=== PATIENT | male | born 1955 | race Caucasian/White ===

== ENCOUNTER 2017-12-13 23:23 | Inpatient (IN) | payer BC, OTHER ==
[~2017-12-13] VITALS: Ht 175.3 cm; Wt 88.0 kg
[2017-12-13 23:59] LABS: BASO % 0.3 %; BASO ABS # 0.03 K/uL (0-0.2); EOS % 2.8 %; EOS ABS # 0.26 K/uL (0-0.5); HEMATOCRIT 43.1 % (42-52); HEMOGLOBIN 15.8 g/dL (14.0-18.0); IG# 0.03 K/uL (0.00-0.02); LYMPH % 19.2 %; LYMPH ABS # 1.76 K/uL (1.2-3.4); MEAN CELL VOLUME 88.7 fL (80-100); MEAN CORPUSCULAR HEMOGLOBIN 32.5 pg (25-34); MEAN CORPUSCULAR HGB CONC 36.7 g/dl (32-36); MEAN PLATELET VOLUME 9.6 fL (7.4-10.4); MONO ABS # 0.73 K/uL (0.11-0.59); NEUT % 69.4 %; NEUT ABS # 6.35 K/uL (1.4-6.5); PLATELET COUNT 217 K/uL (130-400); RED CELL DISTRIBUTION WIDTH CV 12.4 % (11.5-14.5); RED CELL DISTRIBUTION WIDTH SD 39.3 fL (36.4-46.3); WHITE BLOOD COUNT 9.16 K/uL (4.8-10.8)
[2017-12-14] VITALS (15 sets, daily range): BP systolic 97–115; BP diastolic 55–71; PULSE 57–76; TEMP 36.6–36.8; O2SAT 93–97; Ht 175.3 cm; Wt 88.0 kg
[2017-12-14] MEDS ORDERED: NITROGLYCERIN 2% OINTMENT 30GM TUBE EXT ONE
[2017-12-14 00:15] LABS: INR 1.1 (0.9-1.1); PTT PATIENT 26.7 SECONDS (21.0-31.0)
[2017-12-14 00:18] LABS: ALBUMIN 3.6 gm/dl (3.4-5.0); ALT/SGPT 60 U/L (12-78); AST/SGOT 18 U/L (15-37); BLOOD UREA NITROGEN 19 mg/dl (7-18); CALCIUM 8.4 mg/dl (8.5-10.1); CARBON DIOXIDE 27 mmol/L (21-32); CREATININE 0.97 mg/dl (0.60-1.40); GLUCOSE 101 mg/dl (70-99); POTASSIUM 3.7 mmol/L (3.5-5.1); SODIUM 137 mmol/L (136-145)
[2017-12-14 00:23] LABS: ALKALINE PHOSPHATASE 75 U/L (45-117); TOTAL PROTEIN 7.4 gm/dl (6.4-8.2)
--- NOTE | 2017-12-14 00:32 | EMERGENCY ROOM VISIT NOTE ---
History Report prepared by Kasey: Jo Meraz Under the Supervision of: Dr. Idalia Leung D.O. First contact with patient: 23:23 Chief Complaint: CARDIAC ASSESSMENT Stated Complaint: CARDIAC ASSESSMENT History of Present Illness The patient is a 62 year old male who presents to the Emergency Room for a cardiac assessment. The patient states that he has a history of GERD and takes Prilosec. He reports that he has been having increased burning in his chest so he upped his dosage, but it did not help. He states that he started walking daily and noticed it was worse going up a small incline. He states that after 2 nights of this he called for a cardiology appointment. The patient reports that they got him in today for a stress test. He reports that he only made to the second phase when they saw large changes and stopped the test. The reports that the nurse told her it may be an LAD occlusion. She reports that they got back tomorrow to determine if he just needs a cardiac catheterization or a CABG. The patient states that tonight he was having intermittent burning in his chest. He reports that when he lied down for bed he had an increase in burning that radiated into his back. He states that he decided to take a Nitroglycerin pill to help. He reports that right after taking it, the pain radiated into his shoulders, became more intense, and he became diaphoretic. His notes that he also became very pale. The patient states that at this time they called 911. He reports that by the time EMS arrived the pain had subsided. He states that EMS gave him an Aspirin. The patient complains of a headache tonight. The patient notes that he had tingling in his feet in the past month and has been having more gas than normal. The patient denies shortness of breath, nausea, dizziness, lightheadedness, leg swelling, change in bowel movements, and urinary symptoms. The patient denies ever having a cardiac history, GI history, and a history of strokes. The patient notes that his father had a heart attack at age 60. Source of History: patient Onset: this evening Position: other (global) Quality: burning, other (cardiac assessment ) Timing: other (episode) Modifying Factors (Relieving): other (Nitroglycerin) Associated Symptoms: + headache, + diaphoresis, No SOB, No nausea, No urinary symptoms Note: The patient complains of being pale. The patient denies dizziness, lightheadedness, leg swelling, and change in bowel movements. Review of Systems See HPI for pertinent positives & negatives. A total of 10 systems reviewed and were otherwise negative. Past Medical & Surgical Medical Problems: (1) Chest pain (2) GERD (gastroesophageal reflux disease) Family History FH: heart attack Social History Marital Status: Housing Status: lives with family Current/Historical Medications Scheduled Aspirin (Aspirin Ec), 81 MG PO DAILY Fish Oil ([place]-3), 1 CAP PO DAILY Multiple Vitamin (Multivitamin), 1 TAB PO DAILY Omeprazole Magnesium (Prilosec Otc), 20 MG PO DAILY Allergies Coded Allergies: No Known Allergies (Unverified , 12/14/17) Physical Exam Vital Signs Date Time Temp Pulse Resp B/P (MAP) Pulse Ox O2 Delivery O2 Flow Rate FiO2 12/14/17 01:42 71 18 133/76 98 Room Air 12/13/17 23:30 68 12/13/17 23:28 96 Room Air 12/13/17 23:28 37.0 66 16 132/84 96 Room Air Physical Exam GENERAL: alert, well appearing, well nourished, no distress, non-toxic EYE EXAM: normal conjunctiva, PERRL and EOM's grossly intact OROPHARYNX: no exudate, no erythema, lips, buccal mucosa, and tongue normal and mucous membranes are moist NECK: supple, no nuchal rigidity, no adenopathy, non-tender LUNGS: Clear to auscultation. Normal chest wall mechanics HEART: no murmurs, S1 normal and S2 normal, no reproducible chest wall tenderness. ABDOMEN: abdomen soft, non-tender, normo-active bowel sounds, no masses, no rebound or guarding. BACK: Back is symmetrical on inspection and there is no deformity, no midline tenderness, no CVA tenderness. SKIN: no rashes and no bruising UPPER EXTREMITIES: upper extremities are grossly normal. Pulses equal bilaterally. LOWER EXTREMITIES: No pitting edema. Pulses equal bilaterally. NEURO EXAM: Normal sensorium, cranial nerves II-XII grossly intact, normal speech, no gross weakness of arms, no gross weakness of legs. Medical Decision & Procedures ER Provider Diagnostic Interpretation: CHEST X-RAY: The results were interpreted by me. No cardiomegaly. No effusion. Mildly rotated. No focal infiltrate. No wide mediastinum. No overt pulmonary edema. Laboratory Results 12/13/17 23:43 Red Blood Count 4.86, Mean Corpuscular Volume 88.7, Mean Corpuscular Hemoglobin 32.5, Mean Corpuscular Hemoglobin Concent 36.7, Mean Platelet Volume 9.6, Neutrophils (%) (Auto) 69.4, Lymphocytes (%) (Auto) 19.2, Monocytes (%) (Auto) 8.0, Eosinophils (%) (Auto) 2.8, Basophils (%) (Auto) 0.3, Neutrophils # (Auto) 6.35, Lymphocytes # (Auto) 1.76, Monocytes # (Auto) 0.73, Eosinophils # (Auto) 0.26, Basophils # (Auto) 0.03 12/13/17 23:43 Test 12/13/17 23:43 White Blood Count 9.16 K/uL (4.8-10.8) Red Blood Count 4.86 M/uL (4.7-6.1) Hemoglobin 15.8 g/dL (14.0-18.0) Hematocrit 43.1 % (42-52) Mean Corpuscular Volume 88.7 fL (80-100) Mean Corpuscular Hemoglobin 32.5 pg (25-34) Mean Corpuscular Hemoglobin Concent 36.7 g/dl (32-36) Platelet Count 217 K/uL (130-400) Mean Platelet Volume 9.6 fL (7.4-10.4) Neutrophils (%) (Auto) 69.4 % Lymphocytes (%) (Auto) 19.2 % Monocytes (%) (Auto) 8.0 % Eosinophils (%) (Auto) 2.8 % Basophils (%) (Auto) 0.3 % Neutrophils # (Auto) 6.35 K/uL (1.4-6.5) Lymphocytes # (Auto) 1.76 K/uL (1.2-3.4) Monocytes # (Auto) 0.73 K/uL (0.11-0.59) Eosinophils # (Auto) 0.26 K/uL (0-0.5) Basophils # (Auto) 0.03 K/uL (0-0.2) RDW Standard Deviation 39.3 fL (36.4-46.3) RDW Coefficient of Variation 12.4 % (11.5-14.5) Immature Granulocyte % (Auto) 0.3 % Immature Granulocyte # (Auto) 0.03 K/uL (0.00-0.02) Prothrombin Time 12.0 SECONDS (9.0-12.0) Prothromb Time International Ratio 1.1 (0.9-1.1) Activated Partial Thromboplast Time 26.7 SECONDS (21.0-31.0) Partial Thromboplastin Ratio 1.0 Anion Gap 8.0 mmol/L (3-11) Est Creatinine Clear Calc Drug Dose 85.6 ml/min Estimated GFR () 95.9 Estimated GFR (Non- 82.7 BUN/Creatinine Ratio 19.3 (10-20) Calcium Level 8.4 mg/dl (8.5-10.1) Magnesium Level 1.9 mg/dl (1.8-2.4) Total Bilirubin 0.4 mg/dl (0.2-1) Aspartate Amino Transf (AST/SGOT) 18 U/L (15-37) Alanine Aminotransferase (ALT/SGPT) 60 U/L (12-78) Alkaline Phosphatase 75 U/L (45-117) Total Protein 7.4 gm/dl (6.4-8.2) Albumin 3.6 gm/dl (3.4-5.0) Globulin 3.8 gm/dl (2.5-4.0) Albumin/Globulin Ratio 0.9 (0.9-2) Laboratory results per my review. Medications Administered Medications (Trade) Dose Ordered Sig/Abdullahi Route Start Time Stop Time Status Last Admin Dose Admin Nitroglycerin (Nitroglycerin 2% Oint) 1 inch NOW ONCE EXT 12/14/17 00:00 12/14/17 00:01 DC 12/14/17 00:03 1 INCH Heparin Sodium/ Dextrose 500 ml @ 19 mls/hr Q24H PRN IV 12/14/17 00:45 01/13/18 00:44 12/14/17 01:23 19 MLS/HR Heparin Sodium (Porcine) (Heparin Sq 5000 Unit/0.5ml) 4,000 unit NOW STAT IV 12/14/17 00:42 12/14/17 00:43 DC 12/14/17 01:22 4,000 UNIT Miscellaneous Medication (Gi Cocktail) 24 ml NOW STAT PO 3/6/18 02:39 12/14/17 02:40 DC 12/14/17 02:39 24 ML Acetaminophen (Tylenol Tab) 650 mg Q4H PRN PO 12/14/17 02:45 01/13/18 02:44 12/14/17 04:05 650 MG ECG Per My Interpretation Indication: chest pain Rate (beats per minute): 64 Rhythm: sinus rhythm Findings: 1st degree AV block, no acute ischemic change, no ectopy, other ( normal axis, normal intervals) Comparison ECG Date: REPEAT Change: REPEAT EKG: Sinus rhythm at a rate of 64. 1st degree AV block. Normal axis. Normal intervals. No ectopy. No acute ischemic change. ED Course 2323: The patient was evaluated in room B2. A complete history and physical exam was performed. 2356: I reevaluated the patient and he is starting to have chest pain again so we are going to do a repeat EKG. 0000: Ordered Nitroglycerin 1 inch EXT. 0027: I reviewed the patient's case with Dr. Ham -[facility] Hospital[facility]. He will evaluate the patient for further management. 0034: I reevaluated the patient and updated him on his test results. 0037: Ordered Heparin Sodium/ Dextrose 1 ea N/A. 0042: Ordered Heparin Sodium (Porcine) 4000 unit IV. 0045: Ordered Heparin Sodium/ Dextrose 500 ml @ 19 mls/hr PRN IV IV Anticoagulation titration. Medical Decision Differential diagnosis: Etiologies such as cardiac ischemia, aortic dissection, pulmonary embolism, pneumonia, pneumothorax, musculoskeletal, infections, pericarditis, myocarditis , esophageal rupture, gastrointestinal, as well as others were entertained. Patient with concerning story and recent failed outpatient stress test with cardiology. Per family tentative plans have been made to discuss cardiac catheterization for additional diagnosis and treatment. Given patient's recurrent and concerning symptoms tonight, discussed with him admission for likely additional testing and treatment. Patient pain-free on arrival here after having taken 1 nitro at home and been given aspirin by EMS. Patient had one recurrence here, repeat EKG was done which showed no changes. Patient's first troponin here was negative. Given high level of concern for patient given family history, abnormal stress test, and risk factors, discussed with hospitalist for additional evaluation and treatment. Patient started on heparin. I do not suspect dissection, PE, tamponade, perf, gi bleed, or occult infectious etiology. Patient with no history of prior GI bleed or intracranial hemorrhage. Dr. Miller was not on for cardiology this evening as that is who the patient was seen by in the office, and hospitalist stated they will consult cardiology in the morning given that he has been hemodynamically stable, had no EKG changes and his first troponin was negative. Medication Reconcilliation Current Medication List: was personally reviewed by me Blood Pressure Screening Patient's blood pressure: Normal blood pressure Will be further monitored by the hospitalist. Consults Time Called: 24 Consulting Physician: Dr. Jitendra SMILEY Hospitalist Returned Call: [phone] I reviewed the patient's case with Dr. Jitendra SMILEY Hospitalist. He will evaluate the patient for further management. Impression Primary Impression: Chest pain Additional Impression: Abnormal stress test Scribe Attestation The scribe's documentation has been prepared under my direction and personally reviewed by me in its entirety. I confirm that the note above accurately reflects all work, treatment, procedures, and medical decision making performed by me. Departure Information Dispostion Being Evaluated By Hospitalist Referrals No Doctor, Assigned (PCP) Patient Instructions My [facility] Problem Qualifiers Primary Impression: Chest pain Chest pain type: unspecified Qualified Codes: R07.9 - Chest pain, unspecified
[2017-12-14] MEDS ORDERED: HEPARIN SOD 5000 UNIT/0.5 ML CARP IV STA (00:42)
[2017-12-14] MEDS ORDERED: ASPI81TA28 PO (00:49)
[2017-12-14] MEDS ORDERED: MULTTAB58 PO (00:49)
[2017-12-14] MEDS ORDERED: OMEG10007 PO (00:49)
[2017-12-14] MEDS ORDERED: OMEP20TA14 PO (00:49)
[2017-12-14] MEDS: HEPARIN 25,000 UNIT/500ML D5W 500 ML IV PRN ×2 (01:23→09:22)
[2017-12-14] MEDS ORDERED: GI COCKTAIL PO STA (02:39)
[2017-12-14] MEDS ORDERED: ONDANSETRON INJ 2 MG/ML 2 ML VIAL IV PRN ×2 (02:45→10:15)
[2017-12-14] MEDS ORDERED: ACETAMINOPHEN 325 MG TAB PO PRN ×2 (02:45→10:15)
[2017-12-14] MEDS ORDERED: POLYETHYLENE (MIRALAX) 17 GM PACK PO PRN (02:45)
[2017-12-14] MEDS ORDERED: ALUMINUM/MAGNESIUM SUSP 30 ML UDC ONE (02:55)
[2017-12-14] MEDS ORDERED: LIDOCAINE HCL 2% VISC SOLN 20 ML UDC ONE (02:55)
--- NOTE | 2017-12-14 04:26 | History and Physical ---
History & Physical Date & Time of Service: Dec 14, 2017 at 04:17 Chief Complaint: Chest Pain Primary Care Physician: Mercy Patel M.D. History of Present Illness Source: patient Patient is a 62 year old male with a past medical history of GERD that presents with a 1 month history of progressive chest discomfort. The patient was seen by Dr. Miller this afternoon for a stress test, and during the second stage of the exam Dr. Miller told the patient his EKG was showing signs of LAD pathology and was sent over to the hospital. The patient was referred there by his PCP Dr. Patel after having a month history of burning chest discomfort across his chest that had been progressing with strenuous activity. The patient was able to walk fine on flat planes, but any incline would cause the patient to experience the discomfort. It was not reproducible with palpation, did not radiate, was relieved with rest, did not have palpitations, and denies any other associated symptoms. The patient was given Nitro paste in the ED and this relieved his pain. He denies any other acute symptoms at this time. Family History FH: heart attack Social History Smoking Status: Unknown if Ever Smoked Alcohol Use: none Drug Use: none Marital Status: Housing status: lives with family Immunizations History of Influenza Vaccine: Unknown History of Tetanus Vaccine?: Unknown History of Pneumococcal: Unknown History of Hepatitis B Vaccine: Unknown Allergies Coded Allergies: No Known Allergies (Unverified , 12/14/17) Home Medications Scheduled Aspirin (Aspirin Ec), 81 MG PO DAILY Fish Oil ([place]-3), 1 CAP PO DAILY Multiple Vitamin (Multivitamin), 1 TAB PO DAILY Omeprazole Magnesium (Prilosec Otc), 20 MG PO DAILY Review of Systems Constitutional: No fever, No chills, No sweats, No weight loss, No fatigue Respiratory: No cough, No shortness of breath Cardiovascular: + chest pain, No orthopnea, No palpitations Abdomen: No pain, No nausea, No vomiting, No diarrhea, No constipation Musculoskeletal: No swelling Physical Exam Vital Signs Date Time Temp Pulse Resp B/P (MAP) Pulse Ox O2 Delivery O2 Flow Rate FiO2 12/14/17 03:21 58 18 116/74 93 12/14/17 02:57 61 12/14/17 01:42 71 18 133/76 98 Room Air 12/13/17 23:30 68 12/13/17 23:28 96 Room Air 12/13/17 23:28 37.0 66 16 132/84 96 Room Air General Appearance: WD/WN, no apparent distress Head: normocephalic, atraumatic Eyes: normal inspection, sclerae normal Neck: supple, no carotid bruits, trachea midline Respiratory/Chest: chest non-tender, lungs clear, normal breath sounds Cardiovascular: regular rate, rhythm, no edema, no gallop Abdomen/GI: normal bowel sounds, non tender, soft Extremities/Musculoskelatal: normal inspection, no calf tenderness, no pedal edema Neurologic/Psych: alert, oriented x 3 Diagnostics Laboratory Results Results Past 24 Hours Test 12/13/17 23:43 Range/Units White Blood Count 9.16 4.8-10.8 K/uL Red Blood Count 4.86 4.7-6.1 M/uL Hemoglobin 15.8 14.0-18.0 g/dL Hematocrit 43.1 42-52 % Mean Corpuscular Volume 88.7 80-100 fL Mean Corpuscular Hemoglobin 32.5 25-34 pg Mean Corpuscular Hemoglobin Concent 36.7 32-36 g/dl Platelet Count 217 130-400 K/uL Mean Platelet Volume 9.6 7.4-10.4 fL Neutrophils (%) (Auto) 69.4 % Lymphocytes (%) (Auto) 19.2 % Monocytes (%) (Auto) 8.0 % Eosinophils (%) (Auto) 2.8 % Basophils (%) (Auto) 0.3 % Neutrophils # (Auto) 6.35 1.4-6.5 K/uL Lymphocytes # (Auto) 1.76 1.2-3.4 K/uL Monocytes # (Auto) 0.73 0.11-0.59 K/uL Eosinophils # (Auto) 0.26 0-0.5 K/uL Basophils # (Auto) 0.03 0-0.2 K/uL RDW Standard Deviation 39.3 36.4-46.3 fL RDW Coefficient of Variation 12.4 11.5-14.5 % Immature Granulocyte % (Auto) 0.3 % Immature Granulocyte # (Auto) 0.03 0.00-0.02 K/uL Prothrombin Time 12.0 9.0-12.0 SECONDS Prothromb Time International Ratio 1.1 0.9-1.1 Activated Partial Thromboplast Time 26.7 21.0-31.0 SECONDS Partial Thromboplastin Ratio 1.0 Sodium Level 137 136-145 mmol/L Potassium Level 3.7 3.5-5.1 mmol/L Chloride Level 102 98-107 mmol/L Carbon Dioxide Level 27 21-32 mmol/L Anion Gap 8.0 3-11 mmol/L Blood Urea Nitrogen 19 7-18 mg/dl Creatinine 0.97 0.60-1.40 mg/dl Est Creatinine Clear Calc Drug Dose 85.6 ml/min Estimated GFR () 95.9 Estimated GFR (Non- 82.7 BUN/Creatinine Ratio 19.3 10-20 Random Glucose 101 70-99 mg/dl Calcium Level 8.4 8.5-10.1 mg/dl Magnesium Level 1.9 1.8-2.4 mg/dl Total Bilirubin 0.4 0.2-1 mg/dl Aspartate Amino Transf (AST/SGOT) 18 15-37 U/L Alanine Aminotransferase (ALT/SGPT) 60 12-78 U/L Alkaline Phosphatase 75 45-117 U/L Troponin I < 0.015 0-0.045 ng/ml Total Protein 7.4 6.4-8.2 gm/dl Albumin 3.6 3.4-5.0 gm/dl Globulin 3.8 2.5-4.0 gm/dl Albumin/Globulin Ratio 0.9 0.9-2 Impression Assessment and Plan Patient is a 62 year old male with a past medical history of GERD that presents with a 1 month history of progressive chest discomfort Stable Angina/ Chest Pain - EKG: NSR with 1st Degress AV Block --> Repeat EKG tomorrow morning - Troponin < 0.015 --> Repeat q6h - ECHO - Cardiology Consult - Heparin Drip - Nitro Paste - Aspirin - Admit Telemetry GERD - IV Protonix DVT - Heparin Code Status - Full Resuscitation Attending addendum: I have physically seen this patient, have supervised the medical residents activities, and agree with the H&P unless as otherwise noted. Assessment and Plan: Precordial chest pain-- The patient will be admitted to telemetry for serial cardiac enzymes, serial EKG's, cardiac rhythm monitoring and a 2-D echocardiogram with Dopplers. Continue heparin drip begun in the emergency department Aspirin 81 mg daily Nitropaste 1 inch to the anterior chest wall every 6 hours Cardiology consult Advanced Directives Existing Advance Directive: No Existing Living Will: No Existing Power of Reheater: No Resuscitation Status Full Resuscitation VTE Prophylaxis Will order VTE Prophylaxis: Yes Resident Tracking Resident Involvement: Resident Care Provided Care Provided: Adult Hospital Medicine
[2017-12-14] MEDS: NITROGLYCERIN 2% OINTMENT 30GM TUBE EXT SCH ×3 (05:41→18:38)
[2017-12-14 06:35] LABS: CHOLESTEROL 165 mg/dl (0-200); LDL CHOLESTEROL CALCULATED 116 mg/dl
--- NOTE | 2017-12-14 06:49 | DIAGNOSTIC IMAGING REPORT ---
CHEST ONE VIEW PORTABLE HISTORY: 62 years-old Male chest pain acute atypical chest pain COMPARISON: None available TECHNIQUE: Portable AP view of the chest FINDINGS: Cardiomediastinal and hilar silhouettes are within normal limits. No pneumothorax, pleural effusion, focal airspace consolidation or overt pulmonary edema. The bones of the chest appear grossly intact. Degenerative changes are noted about the shoulders and spine. IMPRESSION: No acute process. The above report was generated using voice recognition software. It may contain grammatical, syntax or spelling errors. Electronically signed by: Dhruv Melvin M.D. 12/14/2017 6:48 AM Dictated Date/Time: 12/14/2017 6:47 AM
[2017-12-14 07:48] LABS: PTT PATIENT 46.2 SECONDS (21.0-31.0)
[2017-12-14] MEDS ORDERED: HEPARIN IV BOLUS 3,000 UNIT in SYRINGE 0 ML IV ONE (08:15)
[2017-12-14] MEDS ORDERED: ASPIRIN 81 MG ECTAB PO SCH (09:00)
[2017-12-14] MEDS ORDERED: MIDAZOLAM HCL 1 MG/ML 2ML VIAL ONE (09:36)
[2017-12-14] MEDS ORDERED: HEPARIN SOD (PORCINE) 1000 UNIT/ML 10 ML VIAL ONE (09:37)
[2017-12-14] MEDS ORDERED: NITROGLYCERIN/D5W 100MCG/ML 20ML SYR ONE (09:37)
[2017-12-14] MEDS ORDERED: NiCARDipine HCL INJ 2.5 MG/ML 10 ML AMP ONE (09:37)
[2017-12-14] MEDS ORDERED: FENTANYL CITRATE INJ 50 MCG/1 ML 2 ML VIAL ONE (09:37)
[2017-12-14] MEDS ORDERED: ATROPINE SULFATE 0.1 MG/ML 5ML SYR IV PRN (10:15)
[2017-12-14] MEDS ORDERED: NITROGLYCERIN 0.4 MG SL PER TAB CHARGE SL PRN (10:15)
[2017-12-14] MEDS ORDERED: SODIUM CHLORIDE 0.9% 1000ML 250 ML IV PRN (10:15)
[2017-12-14] MEDS ORDERED: D5W AND 1/2NSS 1,000 ML IV SCH (10:30)
[2017-12-14] MEDS ORDERED: PANTOprazole INJ 40 MG in SYRINGE 0 ML IV SCH (11:00)
--- NOTE | 2017-12-14 11:39 | CARDIOLOGY CONSULTATION ---
DATE OF CONSULTATION: 12/14/2017 REQUESTING PHYSICIAN: Dr. Daniel Perez. CHIEF PASSENGER SHIP STEWARD/STEWARDESS: Asim Miller D.O., [facility]. REASON FOR CONSULTATION: Unstable angina. Dear Dr. Perez, it was my pleasure to see David today in consultation with regards to his unstable angina. As an outpatient, he had been describing increasing chest tightness and chest burning with activity. His office is on the 3rd floor, he notes climbing 2 flights of stairs. He had tightness in his chest. He also notes recently on Wednesday of last week he had a meeting at [employer] and on the way back to the [employer], he was walking uphill and walking with his mary and had burning in his . When he got to his office, the burning persisted for an extended period of time. His family doctor recommended that he undergo a stress testing yesterday in the office. He exercised for 5 minutes and 12 seconds on a Tarik protocol achieving a heart rate of 91% of maximum predicted for his age. The test was stopped due to [address] depression and chest tightness. His baseline echocardiogram was normal without any evidence of wall motion abnormalities, at peak stress, the distal anterior wall and apex became akinetic. He was instructed to take aspirin, beta blockers and statin therapy and was given sublingual nitroglycerin. Last evening, he started having worsening symptoms when he laid down at rest and also had some scapular discomfort. Of note, before last evening, he never had resting anginal symptoms. Denies any palpitations, lightheadedness, dizziness, presyncope or syncope, lower extremity edema, symptoms of claudication. Denies any fevers, chills, sweats, cough, productive sputum. He did have an upper respiratory tract infection recently and he thought some of his discomfort was related to that. There are no plans for upcoming surgery, colonoscopy or tooth extraction. The rest of review of systems is otherwise negative. FAMILY HISTORY: Dad had a heart attack at the age of 60, he from cancer at the age of 67. Mom is living at age 83 and is otherwise healthy and he notes there is significant longevity on his mom's side. ALLERGIES: No known drug allergies. MEDICATIONS: Aspirin, fish oil, multivitamin, and omeprazole. SOCIAL HISTORY: Denies any tobacco. He did have significant secondhand exposure to tobacco as a child. 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 He is . He does have 1 can of beer daily. PHYSICAL EXAMINATION: GENERAL: He is awake, alert, oriented x3. He is in no acute distress. He is a well-appearing male who looks his stated age. VITAL SIGNS: His heart rate is 59, respirations 18, blood pressure 113/62, sat 94% on room air. NECK: 2+ carotid upstrokes, no evidence of carotid bruits. Jugular venous pressure appeared normal. HEENT: Sclerae is anicteric. His hearing is normal. LUNGS: Clear to auscultation bilaterally. No rales, rhonchi or wheezing. HEART: Regular rate and rhythm. No appreciable murmurs, rubs or gallops. ABDOMEN: Soft, nontender, nondistended. Positive bowel sounds. EXTREMITIES: No clubbing, cyanosis or edema. PSYCHIATRIC: His affect appeared appropriate. NEUROLOGIC: Grossly nonfocal. DATA: EKG: Normal sinus rhythm, normal ECG. LABORATORY STUDIES: His troponins are negative x3. Hemoglobin 15.8, platelet count of 217. Sodium 137, potassium 3.7, BUN 19, creatinine 0.97. AST and ALT are normal. His LDL was 116, HDL 31, triglycerides 90. Chest x-ray- no active disease. IMPRESSION: 1. Unstable angina. 2. Outpatient stress echocardiogram suggesting left anterior descending coronary artery ischemia at a low level of activity (5 minutes and 12 seconds on a Tarik protocol). 3. Preserved left ventricular systolic function at rest without evidence of regional wall motion abnormalities. As I discussed with David and his , my recommendation is to proceed with cardiac catheterization. I discussed risks and benefits of cardiac catheterization, risks including but not limited to bleeding or infection of the puncture site, damage to his radial or femoral artery, risk of contrast-induced nephropathy, allergic reaction to contrast, bleeding or infection at the puncture site, 1:1,000 risk of heart attack, stroke or dying with the procedure were discussed. He and his understand the risks. They do understand that there is no CT surgical backup at [facility]. If he needed Emergency heart surgery that he would need a helicopter ride to [facility]. He is already on aspirin, depending on the results of the catheterization he will likely be on Plavix. I would start high intensity statin therapy. Given his relatively low heart rate and blood pressure, there is no room to give him beta blockers or DENYS inhibitors at this time. If his blood pressure allows, we can try to give him low dose DENYS inhibitor therapy after the procedure. All this was discussed with Dr. Jacinto who is the animal control specialist as well as the slab off mill tender. Thank you for allowing me to assist in his care. WESLEY
--- NOTE | 2017-12-14 12:54 | Discharge Instructions ---
Discharge Instructions Date of Service Dec 14, 2017. Admission Reason for Admission: Chest Pain Discharge Discharge Diagnosis / Problem: Multivessal CAD requiring open heart surgery Discharge Goals Goal(s): Improve disease control Activity Recommendations Activity Level: Bedrest . Additional Information Patient informed of condition: Yes Advance Directives: No DNR: No Level of Care: Other [place] Communicable Disease: No Prognosis: Other (for surgery) Current Hospital Diet Patient's current hospital diet: AHA Diet (Heart Healthy) Discharge Diet Recommended Diet: AHA Diet (Heart Healthy) Procedures Procedures Performed: Cardiac cath performed by Dr Jacinto on 12/14/17 Pending Studies Studies pending at discharge: no Laboratory Results Lipid Panel Test 12/14/17 05:29 Range/Units Triglycerides Level 90 0-150 mg/dl Cholesterol Level 165 0-200 mg/dl HDL Cholesterol 31 mg/dl Cholesterol/HDL Ratio 5.3 LDL Cholesterol, Calculated 116 mg/dl Medical Emergencies . Who to Call and When: Medical Emergencies: If at any time you feel your situation is an emergency, please call 911 immediately. . Non-Emergent Contact Non-Emergency issues call your: [facility] . . "Provider Documentation" section prepared by Ashly Sexton. . Core Measure Problem Core Measures: None AMI Core Measures Reason no statin as I/P: Treatment provided - N/A
--- NOTE | 2017-12-14 13:02 | Discharge Summary ---
Discharge Summary Date of Service Dec 14, 2017. Discharge Summary Admission Date: Dec 14, 2017 at 02:47 Discharge Date: Dec 14, 2017 Discharge Disposition: Acute care facility ([facility]) Principal Diagnosis: Multivessal CAD, requires CABG Procedures: Cardic cath by Dr Richards on 12/14/17 Consultations: Dr Miller, [facility] Medication Reconciliation Continued Medications: Aspirin (Aspirin Ec) 81 Mg Tab 81 MG PO DAILY Fish Oil ([place]-3) 1 Ea Cap 1 CAP PO DAILY, CAP Multiple Vitamin (Multivitamin) 1 Tab Tab 1 TAB PO DAILY, TAB Omeprazole Magnesium (Prilosec Otc) 20 Mg Tab 20 MG PO DAILY, TAB Discharge Exam Review of Systems: Constitutional: No fever, No chills, No sweats, No weight loss, No weakness Eyes: No worsening of vision ENT: No hearing loss Respiratory: No cough, No wheezing, No shortness of breath, No dyspnea on exertion, No dyspnea at rest Cardiovascular: + chest pain (when going uphill), No orthopnea, No claudication Abdomen: + problem reported (reflux), No pain, No nausea, No vomiting Musculoskeletal: No joint pain, No muscle pain Genitourinary - Male: No hematuria, No dysuria, No urinary frequency, No urinary hesitancy Neurologic: No memory loss, No paralysis Psychiatric: No depression symptoms Endocrine: No fatigue Physical Exam: General Appearance: WD/WN, no apparent distress Eyes: normal inspection, PERRL ENT: normal ENT inspection, hearing grossly normal Neck: supple, no JVD Respiratory/Chest: lungs clear, normal breath sounds, no respiratory distress Cardiovascular: regular rate, rhythm, no murmur, normal peripheral pulses Abdomen / GI: normal bowel sounds, non tender, soft Extremities: no calf tenderness, no pedal edema Neurologic/Psychiatric: alert, normal mood/affect, oriented x 3 Skin: no rash Hospital Course HPI (from admitting provider & Cardiology): Mr Mcintosh is a 62 yo M who presented for evaluation of chest pain. He had developed chest pain with exertion, primarily when going up stairs, with a tightness and burning in his chest. His PCP Dr Patel recommended that he undergo a stress testing yesterday in the office. He exercised for 5 minutes and 12 seconds on a Tarik protocol achieving a heart rate of 91% of maximum predicted for his age. The test was stopped due to [address] depression and chest tightness. His baseline echocardiogram was normal without any evidence of wall motion abnormalities, at peak stress, the distal anterior wall and apex became akinetic. He was instructed to take aspirin, beta blockers and statin therapy and was given sublingual nitroglycerin. Last evening, he started having worsening symptoms when he laid down at rest and also had some scapular discomfort. Of note, before last evening, he never had resting anginal symptoms. FAMILY HISTORY: Dad had a heart attack at the age of 60, he from cancer at the age of 67. Paternal grandfather had an IL in his 60's. Mom is living at age 83 and is otherwise healthy and he notes there is significant longevity on his mom's side. ALLERGIES: No known drug allergies. MEDICATIONS: Aspirin, fish oil, multivitamin, and omeprazole. SOCIAL HISTORY: Denies any tobacco. He did have significant secondhand exposure to tobacco as a child. 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 He is . He does have 1 can of beer daily. HOSPITAL COURSE: He underwent cardiac cath on 12/14/[address] Richards. Full report is still pending at time of this DC summary. We were informed he had multivessel disease and required open heart surgery, and so he was transferred to [facility] by ambulance. He was reviewed by Dr Meyer prior to transfer and was stable. PROBLEM LIST: 1. Unstable angina w/multivessel CAD - Transfer to [facility] [place] [facility] for further management 2. GERD - IV Protonix VTE: Heparin drip overnight Code status: Full Resident Physician Supervision Note: I interviewed and examined the patient. Discussed with Dr. Sexton and agree with findings and plan as documented in the note. Any exceptions or clarifications are listed here: None Patient was brought to our hospital given an abnormal stress test underwent cardiac catheterization was found to have critical multivessel disease and was referred to [facility] for revascularization I visited with the patient and his family, his daughter is a retired ER nurse, and the patient understands was at store for him after he is evaluated at [place]. Vital signs were stable 36.7 pulse was 59 respiration 18 BP 113/62 he is pain-free cardiac exam was regular his catheterization site was clean and dry he had some mild peripheral numbness to the inside of his thumb of his right hand Assessment ;3 vessel coronary disease with transfer for evaluation revascularization Documented By: Finesse Meyer Total Time Spent: Greater than 30 minutes This includes examination of the patient, discharge planning, medication reconciliation, and communication with other providers. Discharge Instructions Please refer to the electronic Patient Visit Report (Discharge Instructions) for additional information. Follow-Up To be determined Additional Copies To Mercy Patel M.D. Resident Tracking Resident Involvement: Resident Care Provided Care Provided: [facility]
--- NOTE | 2017-12-14 13:07 | CARDIAC CATH REPORT ---
INDICATION: New resting onset typical anginal symptoms with anxiety, [place] Cardiovascular Society class 3 exertional symptoms in a 62-year-old male being treated for hypertension and hyperlipidemia. No prior myocardial infarction and no congestive heart failure. PROCEDURES PERFORMED: Left heart catheterization, coronary cineangiography, left ventriculography, radiological interpretation and supervision. METHOD: Upon arrival in the [facility], the patient was prepped and draped in the usual sterile fashion. After local infiltration of 2% lidocaine, a 5-Czech sheath was placed in the right radial artery. Intra-arterial nitroglycerin and nicardipine were administered. The sheath was aspirated and flushed. A 5-Czech PIG catheter was advanced over wire under fluoroscopic guidance to the central circulation, where it was aspirated and flushed and after confirmation of adequate waveform, it was advanced into the left main. Cineangiograms of the left coronary artery obtained and reviewed. Catheter was then used to engage the origin of the right coronary artery. Cineangiograms of the right coronary artery obtained and reviewed. Catheters were removed from the body over the wire, where sheath was aspirated and flushed. A 5-Czech angled tip pigtail was used to cross the aortic valve in retrograde fashion. Left ventricular end diastolic pressure was measured. Left ventriculography was performed using 36 mL of contrast dye over 3 seconds less than 450 PSI. Catheter was removed from left ventricle to the aorta and under continuous pressure monitoring, removed from body over the wire. Sheath was aspirated and flushed. A compression device was applied over the right radial artery. The patient returned to his room in good condition. COMPLICATIONS: None. FINDINGS: Left main is moderate to large in caliber with distal 60% stenosis. The left circumflex is small to moderate in caliber with a mid 90% stenosis after the origin of the first marginal branch. Left anterior descending artery is moderate in caliber with a more distal mid 99% stenosis. First diagonal branch has a 70% stenosis of a smaller and more medial sub-branch. A mid circ after the first marginal branch, first posterolateral branch has a borderline ischemic stenosis. Right coronary artery was moderate in caliber with a proximal mid 70% stenosis. The PDA is free of significant disease. Left ventricular end diastolic pressure is normal. No significant aortic valve gradient demonstrated. LEFT VENTRICULOGRAPHY: Demonstrates normal left ventricular size and function, ejection fraction estimated 65% with no regional wall motion identified. No mitral valve prolapse or mitral regurgitation demonstrated. IMPRESSION: Critical multivessel coronary artery disease. RECOMMENDATIONS: Coronary artery bypass grafting surgery.
[2017-12-14 16:02] LABS: PTT PATIENT 47.1 SECONDS (21.0-31.0)
[2017-12-14] MEDS ORDERED: ROSUVASTATIN CALCIUM 20 MG TAB PO SCH (21:00)
[2017-12-14] MEDS ORDERED: METOPROLOL TARTRATE 25 MG TAB PO SCH (21:00)
[2017-12-15] MEDS ORDERED: ASPIRIN 81 MG ECTAB PO SCH (09:00)
== END 2017-12-14 22:05 | disposition short-term general hospital (02) | DRG 287 ==
LOC: C.EDB 23:23 → EDBD 23:23 → C.MSICU 12-14 02:47 → ENRESERV 12-14 02:54 → C.2E 12-14 17:13
PROVIDERS: ADMIT Student in an Organized Health Care Education/Training Program; ATTEND Hospitalist
PROC: B215YZZ Fluoroscopy of Left Heart using Other Contrast (ICD-10-PCS; principal; 2017-12-14 09:43)
PROC: 4A023N7 Measurement of Cardiac Sampling and Pressure, Left Heart, Percutaneous Approach (ICD-10-PCS; principal; 2017-12-14 09:43)
DX: I25.10 Atherosclerotic heart disease of native coronary artery without angina pectoris (principal); K21.9 Gastro-esophageal reflux disease without esophagitis; I44.0 Atrioventricular block, first degree; Z79.82 Long term (current) use of aspirin; Z82.49 Family history of ischemic heart disease and other diseases of the circulatory system; Z80.9 Family history of malignant neoplasm, unspecified

== ENCOUNTER → 2017-12-31 | Outpatient (CLI) | payer OTHER ==
[~2017-12-31] MED LIST: ASPI81TA28 PO; MULTTAB58 PO; OMEG10007 PO; OMEP20TA14 PO
--- NOTE | 2017-12-31 12:38 | DIAGNOSTIC IMAGING REPORT ---
CHEST 2 VIEWS ROUTINE HISTORY: PRESENCE OF AORTOCORONARY BYPASS GRAFT COMPARISON: Chest 12/13/2017. FINDINGS: The lungs are clear. Cardiac silhouette is normal in size. No pleural effusions. No pneumothorax. Poststernotomy changes. IMPRESSION: No acute process. Electronically signed by: Kishan Kirkland M.D. 12/31/2017 12:37 PM Dictated Date/Time: 12/31/2017 12:35 PM
== END | disposition home or self-care (01) ==
LOC: C.RAD 12:10
PROVIDERS: ATTEND Surgery
DX: Z95.1 Presence of aortocoronary bypass graft (principal)